=== PATIENT | female | born 1960 | race Caucasian/White ===

== ENCOUNTER → 2023-07-25 06:26 | Day surgery (SDC) | payer OTHER, SELFPAY ==
[2023-07-08 09:34] VITALS: BMI 41.5
[2023-07-08 09:56] LABS: Hematocrit 42.4 % (37.0-47.0); Hemoglobin 13.6 g/dL (12.0-16.0); Mean Corp Hgb Conc. 32.1 g/dL (33.0-37.0); Mean Corpuscular Volume 77.8 fL (81.0-99.0); Mean Platelet Volume 9.4 fL (7.4-10.4); Platelet Count 203 10^3/uL (130-400); Red Blood Cell Count 5.45 10^6/uL (4.20-5.40); Red Cell Dist. Width 15.9 % (11.5-14.5)
[2023-07-08 10:27] LABS: Blood Urea Nitrogen 16 mg/dl (7-17); Carbon Dioxide 24 mmol/L (22-30); Chloride 104 mmol/L (98-107); Estimated Creatinine Clearance 74 ml/min; Glucose 98 mg/dl (70-99); Potassium 4.2 mmol/L (3.5-5.1); Sodium 138 mmol/L (135-145); eGFR > 60.00
[2023-07-25] VITALS (9 sets, daily range): BP systolic 128–166; BP diastolic 77–98; BMI 41.5
--- NOTE | 2023-07-25 07:26 | HP.FOC2 ---
Focused History & Physical
Chief Complaint
HPI:
Chief Complaint: Right lower quadrant spigelian/incisional hernia
HPI / Indication for Planned Procedure: Patient is a 63-year-old female recently seen in outpatient surgical evaluation with localizing discomfort to the right lower quadrant of her abdomen. Pain is noticeable after exertional activities or
standing with some radiation of burning towards the right flank area. She will lie down to alleviate the symptoms. No nausea or vomiting. Past abdominal surgical history is only notable for having undergone a robotic assisted laparoscopic
converted to open hysterectomy for large fibroid uterus. CT imaging from 10/02/2020 shows a fat-containing spigelian hernia fascial defect approximately 2 cm in the right lower quadrant. Right lower quadrant ultrasound imaging shows a 3.4 x 2.0 cm
anterior lateral abdominal wall hernia containing fat on 03/2023.
Relevant Past Medical History: Other (Hypothyroidism, hypertension, obesity with BMI greater than 40, tobacco use)
Relevant Social History: Tobacco Use
Relevant Family History: Negative
Relevant Past Surgical History: Positive for (RAL converted to open hysterectomy, tonsillectomy)
Review of Systems
Review of Pertinent Systems: All Systems Negative
Medication
See Medication form for detailed medications: Yes
Medication List (including Herbals & OTC):
pantoprazole 40 mg tablet,delayed release 40 mg PO DAILY #20 tabs 10/02/20
alprazolam 0.25 mg tablet (Xanax) 0.25 mg PO PRN PRN anxiety 07/19/23
ergocalciferol (vitamin D2) 1,250 mcg (50,000 unit) capsule (Vitamin D2) 1,250 mcg PO QWEEK 07/19/23
hydrochlorothiazide 25 mg tablet 25 mg PO DAILY 07/19/23
levothyroxine 50 mcg tablet 50 mcg PO DAILY 07/19/23
lisinopril 10 mg tablet 10 mg PO DAILY 07/19/23
Medications Reviewed: Yes
Allergies and Reactions
Patient has Allergies: Yes
Noted Allergies and Reactions:
Allergy/AdvReac Type Severity Reaction Status Date / Time
morphine Allergy Anaphylaxis Verified 07/19/23 08:48
Sulfa (Sulfonamide Allergy Unknown Verified 07/19/23 08:48
Antibiotics)
sumatriptan Allergy Unknown Verified 07/19/23 08:48
Pertinent Physical Exam
All Other Systems: Negative
Head/Neck: Normal
Lungs: Normal
Heart: Normal
Abdomen: Other (Right lower quadrant partially reducible hernia, nontender, located at suspected robotic port site)
Extremities: Normal
Neurological: Normal
Diagnosis / Assessment
63-year-old female presenting for scheduled operative correction symptomatic right lower quadrant port site hernia which measures 2 to 3 cm
Plan / Procedure
Robotic assisted laparoscopic repair right lower quadrant incisional hernia with mesh
Anesthesia/Sedation to be done by Anesthesia Provider: Yes
[2023-07-25] MEDS: TYLENOL 1000 MG PO (10:54)
[2023-07-25] MEDS: NORMOSOL-R 1000 IV (11:00)
--- NOTE | 2023-07-25 11:59 | W.SUR.PREOP ---
Pre-Operative Surgical Note
-
I have examined this patient prior to the performance of the scheduled procedure.
The patient's condition is unchanged from the time of the current History and
Physical and the patient is able to undergo the scheduled procedure.
--- NOTE | 2023-07-25 14:39 | W.IMMPOSTOP ---
Addendum entered and electronically signed by Jace Kamara MD 07/25/23 15:04:
#[id number]
Original Note:
Surgical Immed Post Op Note
-
Primary Surgeon: Asad
Assisting Surgeon: Arya Madera PGY 1
Pre-op Diagnosis: RLQ incisional hernia
Post-op Diagnosis: Incarcerated RLQ incisional hernia; 2cm
Procedure Performed: RAL PARISH repair incarcerated RLQ incisional hernia with mesh (11.5cm round ventralightST)
Anesthesia Type: GETA + 0.25% Marcaine
Specimen / Cultures: none
Estimated Blood Loss: 6mL
Complications: none
Operative Findings: few filmy omental adhesions to abd wall lysed. no bowel adhesions. incarcerated RLQ incisional hernia at prior robotic port site. herniated epiploic and omental fat reduce. cecum adjacent to hernia but not within it. 2cm
fascial defect - closed with 0 PDS. ventralightST 11.5cm round mesh repair - preperitoneal; secured with 2-0V.
updated pts daughter via phone call post op
[2023-07-25] MEDS: SUBLIMAZE 25 MCG IV ×2 (15:04→15:17)
[2023-07-25] MEDS: ROXICODONE 5 MG PO (16:10)
== END | disposition home or self-care (01) ==
LOC: SDS 06:26
PROVIDERS: ATTENDING PHYSICIAN Surgery; FAMILY PHYSICIAN Family Medicine
DX: K43.0 Incisional hernia with obstruction, without gangrene (principal); K66.0 Peritoneal adhesions (postprocedural) (postinfection)
CPT/HCPCS: 49592; 36415; 80048; 85027; 93005; C1781